=== PATIENT | female | born 2000 | race Caucasian/White ===

== ENCOUNTER → 2020-06-14 | Outpatient (CLI) | payer OTHER ==
[2020-06-14 16:02] LABS: BASO % 0.4 % (0.0-1.0); EOS # 0.2 10^3/uL (0.0-0.5); EOS % 1.7 % (0.0-3.0); HEMATOCRIT 35.5 % (36.0-47.0); HEMOGLOBIN 11.8 g/dl (12.0-15.5); LYMPH # 1.6 10^3/uL (1.5-5.0); LYMPH % 14.5 % (24.0-44.0); MEAN CORPUSCULAR HEMOGLOBIN 29.4 pg (27.0-33.0); MEAN CORPUSCULAR HGB CONC 33.2 g/dl (32.0-36.5); MEAN CORPUSCULAR VOLUME 88.5 fl (80.0-96.0); MONO # 0.7 10^3/uL (0.0-0.8); MONO % 6.3 % (0.0-5.0); NEUTROPHILS # 8.3 10^3/uL (1.5-8.5); NEUTROPHILS % 75.9 % (36.0-66.0); PLATELET COUNT, AUTOMATED 270 10^3/uL (150-450); RED BLOOD COUNT 4.01 10^6/uL (4.00-5.40); WHITE BLOOD COUNT 10.9 10^3/uL (4.0-10.0)
[2020-06-14 16:44] LABS: HEPATITIS C VIRUS ABY INDEX 0.3 INDEX (<0.8); HIV 1&2 SCREEN CENTAUR NEGATIVE (NEGATIVE)
[2020-06-14 17:54] LABS: CHLAMYDIA DNA AMPLIFICATION NEGATIVE (NEGATIVE); GC DNA AMPLIFICATION NEGATIVE (NEGATIVE)
== END ==
LOC: M PLALAB 12:08
PROVIDERS: ATTEND Advanced Practice Midwife
DX: Z34.82 Encounter for supervision of other normal pregnancy, second trimester (principal); Z3A.00 Weeks of gestation of pregnancy not specified

== ENCOUNTER → 2020-06-24 | Outpatient (CLI) | payer OTHER ==
--- NOTE | 2020-07-15 11:09 | REP ---
COMPLETE OBSTETRICAL ULTRASOUND CLINICAL: Anatomical assessment. TECHNIQUE: Transabdominal obstetric ultrasound with color Doppler evaluation. FINDINGS: Ultrasound examination demonstrates a single live intrauterine in cephalic presentation. motion was identified by the technologist. Placenta is noted posteriorly and grade 1 without evidence for placenta previa or abruption. Amniotic fluid volume is normal. Cervix measures 3.9 cm in length and appears closed. No evidence for nuchal cord. heart rate 138 beats per minute. Gestational age by current biometrical measurements 26 weeks 3 days with estimated date of delivery 09/27/2020. Estimated weight 935 grams (51st percentile). Anatomical assessment demonstrates normal cranium, choroid plexus, cerebellum, posterior fossa, facial features, four chamber heart/ventricular outflow tracts, diaphragm, stomach, kidneys/bladder, spine, extremities, three-vessel cord, and cord insertion. IMPRESSION: Single live intrauterine in cephalic presentation demonstrating appropriate estimated weight. Anatomical assessment is complete and normal. No gross abnormalities are identified. MTDD
== END ==
LOC: M WHC 09:48 → EDUNIT# 10:00
PROVIDERS: ATTEND Advanced Practice Midwife
DX: Z34.82 Encounter for supervision of other normal pregnancy, second trimester (principal); Z3A.26 26 weeks gestation of pregnancy

== ENCOUNTER → 2020-07-19 | Outpatient (REF) | payer OTHER, MEDICAID ==
[2020-07-19 14:19] LABS: HEMATOCRIT 37.4 % (36.0-47.0); MEAN CORPUSCULAR HEMOGLOBIN 28.6 pg (27.0-33.0); MEAN CORPUSCULAR HGB CONC 32.1 g/dl (32.0-36.5); PLATELET COUNT, AUTOMATED 266 10^3/uL (150-450); WHITE BLOOD COUNT 12.3 10^3/uL (4.0-10.0)
== END ==
LOC: M PLALAB 10:59
PROVIDERS: ATTEND Advanced Practice Midwife
DX: Z34.83 Encounter for supervision of other normal pregnancy, third trimester (principal)
CPT/HCPCS: 36415; 82950; 85027; 86850; 86900; 86901; J2790

== ENCOUNTER → 2020-08-31 | Outpatient (REF) | payer OTHER, MEDICAID | LOC: M SFHCWAGY 13:22 | PROVIDERS: ATTEND Advanced Practice Midwife | DX: Z34.93 Encounter for supervision of normal pregnancy, unspecified, third trimester (principal); Z3A.00 Weeks of gestation of pregnancy not specified ==

== ENCOUNTER 2020-10-02 00:15 | Inpatient (IN) | payer OTHER, MEDICAID ==
[2020-10-02] VITALS (20 sets, daily range): BP systolic 96–129; BP diastolic 51–77
[~2020-10-02] VITALS: Ht 162.6 cm; Wt 75.4 kg
[2020-10-02 01:36] LABS: HEMATOCRIT 39.7 % (36.0-47.0); HEMOGLOBIN 12.8 g/dl (12.0-15.5); MEAN CORPUSCULAR HEMOGLOBIN 26.7 pg (27.0-33.0); MEAN CORPUSCULAR HGB CONC 32.2 g/dl (32.0-36.5); MEAN CORPUSCULAR VOLUME 82.7 fl (80.0-96.0); PLATELET COUNT, AUTOMATED 284 10^3/uL (150-450); WHITE BLOOD COUNT 17.1 10^3/uL (4.0-10.0)
[2020-10-02] MEDS ORDERED: FENTANYL 2MCG/ML ROPIVACAINE 0.2% IN 0.9% NACL 100ML IVBAG As Ordered ONE (01:43)
[2020-10-02] MEDS ORDERED: LR 1,000 ML IV SCH (02:02)
[2020-10-02] MEDS ORDERED: LACTATED RINGER'S 1000 ML IV STA (02:02)
--- NOTE | 2020-10-02 02:23 | HPEPDOC ---
Obstetrical History & Physical General Date of Admission Oct 02, 2020 at 01:06 History of Present Illness Chief Complaint: Contractions, term Information Provided By: Patient Age: 19 : 2 Term: 1 Pre-term: 0 Abortions: 0 Livin Care Care: Limited Care (initiated at 24 weeks) Dating Final EDC by: 2nd trimester (US) EGA at Admission: 40 (+4) Past Medical History Past Obstetrical History : Past Obstetrical History: Primgravida (01/2019) Type of Delivery: Spontaneous Vaginal Del. Sex of : Male (6#8) Complications: Yes (no care) Past Medical History Surgical History: Other (right arm fracture) Family History Significant Family History: No pertinent family hx Social History Marital Status: Family situation: Spouse/partner home Psychosocial History: No pertinent psych hx * Smoker: non-smoker Alcohol: Denies Drugs: denies Imunizations Tdap status: current Influenza Status: declined Allergies Coded Allergies: No Known Allergies (Verified Allergy, Unknown, 10/02/20) Physical Examination Physical Examination GENERAL: Alert and oriented times three. BREAST: . ABDOMEN: Gravid and non-tender to touch. FETUS: Is vertex (VTX) by sterile vaginal examination (SVE), fetus is vertex (VTX) by Peter. 7# HEART RATE: Regular rate and rhythm. LUNGS: Clear to auscultation (CTA). EXTREMITIES: No edema. No clonus. Deep tendon reflexes (DTRs) + 2 Vital Signs/I&O Vital Signs Date Time Temp Pulse Resp B/P (MAP) Pulse Ox O2 Delivery O2 Flow Rate FiO2 10/02/20 00:30 98.3 90 121/73 (89) Laboratory Data 24H LABS Laboratory Tests 2 10/02/20 01:15: Nucleated Red Blood Cells % (auto) 0.0 10/02/20 01:20: Serology Scanned Report Hepatitis B Testing CBC/BMP Laboratory Tests 10/02/20 01:15 Pertinent Laboratoy Data Blood Type: B- RBC Antibody Screen: Negative HIV: Negative Hepatitis B: Negative Hepatitis C: Negative Rapid Plasma Reagin: Nonreactive Rubella: Immune Chlamydia/Gonorrhea: Negative Group B Streptococcus: Negative Glucose Tolerance Test: 70 Anatomy Ultrasound Ultrasound Date: Jun 24, 2020 Placenta Location: Posterior Normal Anatomy: Yes Placenta Previa: No Estimated Weight (grams): 935 (51%) Steroid Therapy Steroid Therapy: No Vaginal Examination Dilation: 4 cm Effacement: 90% Station: -1 Cervical Consistency: Soft Cervical Position: Posterior Presentation: Cephalic presentation Assessment Heart Rate (FHR): 145 Variability: Moderate Accelerations: Positive Decelerations: None Tocometer Contractions: Yes Frequency: regular, every 2-5 min. Duration: greater than 60 seconds Strength: palpated as moderate Assessment/Plan Assessment Cindy is a 19-year-old (G)2 para (P)1-0-0-1 at 40+4 weeks by 26-week ultrasound. Presents to Labor and Delivery (L&D) via ambulance with reports of contractions since 1900. Denies LOF, bleeding or UC. Fetus is active. Patient plans to adopt this baby out, plans are on the chart Plan Admit and orient. 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 Diet: clear liquids. Group B Streptococcus (GBS) negative. Labs and intravenous (IV) per unit protocol. Counseled on Pitocin and induction of labor (IOL). Lactated Ringers (LR): Bolus 500 mL, then at 125 mL/hr. Plans epidural for labor coping Anticipate normal spontaneous delivery (). C-S as appropriate. Swapna Alvarez CNM Oct 02, 2020 02:23
[2020-10-02] MEDS ORDERED: REFRIGERATOR IV KEYS XX PRN (02:45)
[2020-10-02] MEDS ORDERED: LACTATED RINGER'S 1000 ML IV PRN (02:45)
[2020-10-02] MEDS ORDERED: NALOXONE INJ 0.4MG/1ML VIAL (J2310 PER 1MG) IV PRN (02:45)
[2020-10-02] MEDS ORDERED: ePHEDrine SULFATE 25 MG/5 ML(5MG/ML) SYRINGE IV PRN (02:45)
[2020-10-02] MEDS ORDERED: ONDANSETRON 4MG/2ML VIAL IV PRN (02:45)
[2020-10-02] MEDS ORDERED: FENTANYL/ROPIVACAINE/NACL BAG 100 ML EPIDURAL SCH (02:45)
[2020-10-02] MEDS ORDERED: EPIDURAL/PCA KEYS XX PRN (02:45)
[2020-10-02] MEDS ORDERED: diphenhydrAMINE 50MG/ML VIAL (J1200) IV PRN (02:45)
[2020-10-02] MEDS ORDERED: EPIDURAL COMMENT XX SCH (02:45)
[2020-10-02] MEDS ORDERED: OXYTOCIN DRIP 30 UNITS in IV 1 EA IV SCH (04:45)
[2020-10-02] MEDS ORDERED: BENZOCAINE 20% HEMORRHOIDAL OINTMENT 28GM TUBE TOP PRN (07:00)
[2020-10-02] MEDS ORDERED: MOM 30ML SUSPENSION UDC PO PRN (07:00)
[2020-10-02] MEDS ORDERED: METHYLERGONOVINE MALEATE 0.2 MG TAB PO PRN (07:00)
[2020-10-02] MEDS ORDERED: IBUPROFEN 600MG TAB PO PRN (07:00)
[2020-10-02] MEDS ORDERED: RHOGAM 300 MCG (1500 IU) INJ (J2790) IM SCH (07:00)
[2020-10-02] MEDS ORDERED: ACETAMINOPHEN 500 MG TAB PO PRN (07:00)
[2020-10-02] MEDS ORDERED: MEASLES,MUMPS,RUBELLA VACCINE INJ (MMR-II) (90707) SC SCH (07:00)
[2020-10-02] MEDS ORDERED: ACETAMINOPHEN TAB 650MG DOSE (2X325MG) PO PRN (07:00)
[2020-10-02] MEDS ORDERED: DOCUSATE SODIUM 100MG CAPSULE PO PRN (07:00)
[2020-10-02] MEDS ORDERED: IBUPROFEN 800 MG TAB PO PRN (07:00)
--- NOTE | 2020-10-02 07:13 | DNPDOC ---
[facility] Delivery Note Delivery Note DATE OF DELIVERY: 10/02/2020 PREDELIVERY DIAGNOSIS: 40+4/7 weeks' gestation and labor. POST DELIVERY DIAGNOSIS: Delivered. Planned adoption. PROCEDURE: Spontaneous vaginal delivery. PROVIDER: Swapna Alvarez CNM ANESTHESIA: Epidural. ESTIMATED BLOOD LOSS: 200 mL. FINDINGS: 8 pound 4 ounce, 3730gm male , Score 8/9, no nuchal cord. DELIVERY SUMMARY: Patient is a 19-year-old 2 now para 2-0-0-2 who was admitted to labor and delivery for active labor at term. She utilized an epidural for labor coping and received pitocin augmentation. AROM clear fluid 0603, Fully dilated at that time. Midline episiotomy cut due to poor tissue compliance. Viable male delivered SALAZAR @ 0621 without difficulty. Spontaneous respirations with stimulation. Cord doubly clamped and cut, to warmer per patient request. Apgars 8/9. Placenta weber intact with 3v cord @ 0624. Fundus firmed with massage and IV pitocin bolus. Episiotomy inspected, no extension noted. Repaired with 3-0 vicryl rapide in usual fashion. EBL 200ml. Adoptive parents are enroute to hospital for bonding. Swapna Alvarez CNM Oct 02, 2020 07:13
[2020-10-02] MEDS ORDERED: PRENATAL VITAMINS CHEWABLE TABLET PO SCH (09:00)
== END 2020-10-02 16:15 | disposition home or self-care (01) | DRG 560 ==
LOC: EEVIPCON 00:15 → M LDO 00:15 → M LDI 01:06
PROVIDERS: ADMIT Advanced Practice Midwife; ATTEND Advanced Practice Midwife
PROC: 10E0XZZ Delivery of Products of Conception, External Approach (ICD-10-PCS; principal; 2020-10-02)
PROC: 10907ZC Drainage of Amniotic Fluid, Therapeutic from Products of Conception, Via Natural or Artificial Opening (ICD-10-PCS; 2020-10-02)
PROC: 0W8NXZZ Division of Female Perineum, External Approach (ICD-10-PCS; 2020-10-02)
DX: O48.0 Post-term pregnancy (principal); Z37.0 Single live birth; Z3A.40 40 weeks gestation of pregnancy

== ENCOUNTER → 2020-11-16 | Outpatient (REF) | payer OTHER ==
[2020-11-16 11:20] LABS: BASO # 0.1 10^3/uL (0.0-0.2); BASO % 0.6 % (0.0-1.0); EOS # 0.3 10^3/uL (0.0-0.5); EOS % 3.2 % (0.0-3.0); HEMATOCRIT 41.1 % (36.0-47.0); HEMOGLOBIN 13.2 g/dl (12.0-15.5); LYMPH # 2.4 10^3/uL (1.5-5.0); LYMPH % 27.2 % (24.0-44.0); MEAN CORPUSCULAR HEMOGLOBIN 26.7 pg (27.0-33.0); MEAN CORPUSCULAR HGB CONC 32.1 g/dl (32.0-36.5); MONO # 0.7 10^3/uL (0.0-0.8); MONO % 7.6 % (0.0-5.0); NEUTROPHILS # 5.4 10^3/uL (1.5-8.5); NEUTROPHILS % 60.9 % (36.0-66.0); PLATELET COUNT, AUTOMATED 338 10^3/uL (150-450); RED BLOOD COUNT 4.95 10^6/uL (4.00-5.40); WHITE BLOOD COUNT 8.8 10^3/uL (4.0-10.0)
[2020-11-16 11:32] LABS: FREE T4 0.92 NG/DL (0.76-1.46); THYROID STIMULATING HORMONE 2.21 uIU/ML (0.358-3.740)
== END ==
LOC: M PLALAB 08:45
PROVIDERS: ATTEND Advanced Practice Midwife
DX: R53.83 Other fatigue (principal)